=== PATIENT | male | born 1970 | race Caucasian/White ===

== ENCOUNTER 2018-03-22 03:10 | Emergency (ER) | payer SELFPAY ==
[~2018-03-22] VITALS: Ht 190.5 cm; Wt 136.1 kg
[2018-03-22 03:17] VITALS: BP 144/105
[2018-03-22] MEDS ORDERED: LORazepam 2 MG/ML VIAL IM ONE (03:45)
[2018-03-22 04:58] VITALS: BP 150/88
== END 2018-03-22 04:58 | disposition home or self-care (01) ==
LOC: MED 03:10
DX: F41.9 Anxiety disorder, unspecified (principal); F15.10 Other stimulant abuse, uncomplicated; F17.210 Nicotine dependence, cigarettes, uncomplicated; I10 Essential (primary) hypertension; Z88.8 Allergy status to other drugs, medicaments and biological substances
CPT/HCPCS: 96372; 99284; J2060